=== PATIENT | female | born 1970 | race Caucasian/White ===

== ENCOUNTER → 2016-11-27 | Outpatient (CLI) | payer MEDICARE, OTHER ==
--- NOTE | 2016-11-27 16:31 | US ---
EXAMINATION TYPE: US thyroid st tissue head/neck DATE OF EXAM: 11/27/2016 3:56 PM COMPARISON: NONE CLINICAL HISTORY: 46-year-old female enlarged thyroid E01.1. Thyroidomegaly . TECHNIQUE: Multiple sonographic images of the thyroid gland were obtained. FINDINGS: Right Lobe: 4.0 x 1.4 x 1.8 cm Overall Parenchyma: homogenous Left Lobe: 3.9 x 1.0 x 1.2 cm Overall Parenchyma: homogeneous Isthmus Thickness: 0.4 cm No discrete nodule is seen. IMPRESSION: Gland measurements as above. No discrete nodule.
== END | disposition home or self-care (01) ==
LOC: RADUSWWP 15:43
PROVIDERS: ATTEND Family Medicine
DX: E01.0 Iodine-deficiency related diffuse (endemic) goiter (principal)
CPT/HCPCS: 76536

== ENCOUNTER → 2017-07-14 | Outpatient (CLI) | payer MEDICARE, OTHER ==
[2017-07-14 20:43] LABS: Basophils % (A) 1 %; CH 28.1; CHCM 31.3; Eosinophils # (A) 0.1 k/uL (0-0.7); Eosinophils % (A) 2 %; HCT 40.6 % (34.0-46.0); HDW 2.25; HGB 12.8 gm/dL (11.4-16.0); Luc # (Auto) 0.11; Luc % (Auto) 2; Lymphocytes # (A) 1.7 k/uL (1.0-4.8); Lymphocytes % (A) 29 %; MCH 28.6 pg (25.0-35.0); MCHC 31.6 g/dL (31.0-37.0); MCV 90.4 fL (80.0-100.0); Mean Platelet Volume 7.9; Monocytes # (A) 0.4 k/uL (0-1.0); Monocytes % (A) 7 %; Neutrophils # (A) 3.5 k/uL (1.3-7.7); Neutrophils % (A) 60 %; RBC 4.49 m/uL (3.80-5.40); RDW 14.6 % (11.5-15.5); WBC 5.8 k/uL (3.8-10.6); WBC (Perox) 6.09
[2017-07-14 20:58] LABS: ALT 21 U/L (9-52); AST 20 U/L (14-36); Alkaline Phosphatase 71 U/L (38-126); Anion Gap 10 mmol/L; Blood Urea Nitrogen 15 mg/dL (7-17); Calcium 9.7 mg/dL (8.4-10.2); Carbon Dioxide 24 mmol/L (22-30); Chloride 106 mmol/L (98-107); Cholesterol 172 mg/dL (<200); Glucose 85 mg/dL (74-99); HDL Cholesterol 70 mg/dL (40-60); Non-African American GFR(MDRD) >60 (>60 ml/min/1.73 sqM); Potassium 4.5 mmol/L (3.5-5.1); Sodium 140 mmol/L (137-145); Total Bilirubin 0.4 mg/dL (0.2-1.3); Total Protein 7.1 g/dL (6.3-8.2)
== END ==
LOC: MMGSC 11:35
PROVIDERS: ATTEND Family Medicine
DX: Z00.00 Encounter for general adult medical examination without abnormal findings (principal); N93.8 Other specified abnormal uterine and vaginal bleeding
CPT/HCPCS: 36415; 80053; 80061; 83001; 83002; 84439; 84443; 85025; 99203

== ENCOUNTER → 2018-12-14 | Outpatient (CLI) | payer MEDICARE, OTHER ==
--- NOTE | 2018-12-15 13:38 | MM ---
Reason for exam: screening (asymptomatic). Last mammogram was performed 3 years and 4 months ago. History: Patient is nulliparous. Family history of breast cancer in maternal grandmother at age 60, breast cancer in paternal grandmother at age 60, breast cancer in paternal aunt at age 30, breast cancer in paternal aunt at age 60, and breast cancer in 2 other paternal aunts. Took hormonal contraceptives for 6 years. Physical Findings: A clinical breast exam by your physician is recommended on an annual basis and results should be correlated with mammographic findings. MG 3D Screening Mammo W/Cad Bilateral CC and MLO view(s) were taken. Prior study comparison: August 15, 2015, bilateral MG 3d screening mammo w/cad. The breast tissue is heterogeneously dense. This may lower the sensitivity of mammography. No suspicious abnormality on the left breast. Right lateral asymmetry on CC 3D image 34/68 approximately 8cm from nipple. ASSESSMENT: Incomplete: need additional imaging evaluation, BI-RAD 0 RECOMMENDATION: Special view mammogram of the right breast. If lesion persists on supplemental views, image directed ultrasound is recommended. [facility] will attempt to contact patient to return for supplemental views and ultrasound if indicated.
== END ==
LOC: RADMAMWWP 12:51
PROVIDERS: ATTEND Family Medicine
DX: Z12.31 Encounter for screening mammogram for malignant neoplasm of breast (principal)
CPT/HCPCS: 77063; 77067

== ENCOUNTER → 2018-12-21 | Outpatient (CLI) | payer MEDICARE, OTHER ==
--- NOTE | 2018-12-21 14:29 | MM ---
Reason for exam: additional evaluation requested from abnormal screening. Last mammogram was performed less than 1 month ago. History: Patient is nulliparous. Family history of breast cancer in maternal grandmother at age 60, breast cancer in paternal grandmother at age 60, breast cancer in paternal aunt at age 30, breast cancer in paternal aunt at age 60, and breast cancer in 2 other paternal aunts. Took hormonal contraceptives for 6 years. Physical Findings: Nurse did not find any significant physical abnormalities on exam. MG 3D Work Up W/Cad RT Spot compression CC, spot compression MLO, and ML view(s) were taken of the right breast. Prior study comparison: December 14, 2018, bilateral MG 3d screening mammo w/cad. August 15, 2015, bilateral MG 3d screening mammo w/cad. The breast tissue is heterogeneously dense. This may lower the sensitivity of mammography. Focal asymmetry right upper outer quadrant, stable. No significant new findings when compared with previous films. These results were verbally communicated with the patient and result sheet given to the patient on 12/21/18. ASSESSMENT: Benign, BI-RAD 2 RECOMMENDATION: Follow-up diagnostic mammogram of the right breast in 6 months.
== END ==
LOC: RADMAMWWP 13:35
PROVIDERS: ATTEND Family Medicine
DX: R92.8 Other abnormal and inconclusive findings on diagnostic imaging of breast (principal)
CPT/HCPCS: 77065; G0279; 77061

== ENCOUNTER → 2019-09-01 | Outpatient (CLI) | payer MEDICARE, OTHER ==
--- NOTE | 2019-09-02 08:00 | MM ---
Reason for exam: follow-up at short interval from prior study. Last mammogram was performed 8 months ago. History: Patient is nulliparous. Family history of breast cancer in maternal grandmother at age 60, breast cancer in paternal grandmother at age 60, breast cancer in paternal aunt at age 30, breast cancer in paternal aunt at age 60, and breast cancer in 2 other paternal aunts. Took hormonal contraceptives for 6 years. Physical Findings: Nurse did not find any significant physical abnormalities on exam. MG 3D Diag Mammo W/Cad RT CC and MLO view(s) were taken of the right breast. Prior study comparison: December 21, 2018, right breast MG 3d work up w/cad RT. December 14, 2018, bilateral MG 3d screening mammo w/cad. The breast tissue is heterogeneously dense. This may lower the sensitivity of mammography. No significant new findings when compared with previous films. These results were verbally communicated with the patient and result sheet given to the patient on 09/01/19. ASSESSMENT: Benign, BI-RAD 2 RECOMMENDATION: Return to routine screening mammogram schedule for both breasts. Back on schedule.
== END | disposition home or self-care (01) ==
LOC: RADMAMWWP 13:33
PROVIDERS: ATTEND Family Medicine
DX: R92.8 Other abnormal and inconclusive findings on diagnostic imaging of breast (principal)
CPT/HCPCS: 77065; G0279; 77061

== ENCOUNTER → 2020-06-20 | Outpatient (CLI) | payer MEDICARE ==
[2020-06-20 10:24] VITALS: BP 132/83; PULSE 74; RESP 18; TEMP 98.3
--- NOTE | 2020-06-20 13:45 | P.HPOB ---
History of Present Illness H&P Date: 06/20/20 Chief Complaint: The patient is here for her routine gynecologic exam and ma mmogram. This is a 50-year-old with an LMP of 05/31/2020. The patient is here to establish with this office. It has been about 2 years since her last pelvic exam. Menses are regular every month and she denies any intermenstrual bleeding. She is not sexually active. She is without gynecologic complaints. Review of Systems She states her weight can fluctuate by about 10 pounds. She denies respiratory, cardiac, or GI problems. Past Medical History Past Medical History: Asthma, Hypertension Additional Past Medical History / Comment(s): Cerebral palsy and seasonal ALLERGIES. She uses a diuretic for water retention. PAST SOFTWARE QA MANAGER HISTORY: She has no history of STDs. History of Any Multi-Drug Resistant Organisms: None Reported Past Surgical History: Adenoidectomy, Joint Replacement, Orthopedic Surgery Additional Past Surgical History / Comment(s): Right hip replacement. Right wrist surgery. Surgery on hamstring, heel and bunionectomy. Colonoscopy 2014. Past Psychological History: No Psychological Hx Reported Smoking Status: Never smoker Past Alcohol Use History: Occasional (3 per month) Past Drug Use History: None Reported Additional History: The patient is single and is not seeing anybody at this time. 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 - Past Family History Father Family Medical History: Asthma Additional Family Medical History / Comment(s): History of alcohol and drug abuse. Paternal grandmother had breast cancer. Paternal grandfather had renal cancer. Mother Family Medical History: Asthma, Cancer Additional Family Medical History / Comment(s): Migraine. Very early breast cancer. Medications and Allergies Home Medications Medication Instructions Recorded Confirmed Type Ascorbic Acid [Vitamin C] 500 mg PO DAILY 06/20/20 06/20/20 History Budesonide-Formot 160-4.5 Mcg 2 puff INHALATION BID 06/20/20 06/20/20 History [Symbicort 160-4.5 Mcg Inhaler] Cholecalciferol [Vitamin D3 (25 1,000 unit PO DAILY 06/20/20 06/20/20 History Mcg = 1000 Iu)] Furosemide [Lasix] 20 mg PO DAILY 06/20/20 06/20/20 History Ibuprofen 200 mg PO Q8H 06/20/20 06/20/20 History Ipratropium [place] 0.06%Nasal 1 spray EA NOSTRIL DAILY PRN 06/20/20 06/20/20 History [Atrovent Nasal 0.06%] Ipratropium/Albuter 20-100Mcg 1 puff INHALATION DAILY PRN 06/20/20 06/20/20 History [Combivent Respimat 20-100Mcg Inhaler] Loratadine 10 mg PO DAILY PRN 06/20/20 06/20/20 History Magnesium 250 mg PO DAILY 06/20/20 06/20/20 History Metoprolol Tartrate [Lopressor] 50 mg PO BID 06/20/20 06/20/20 History Montelukast Sodium [Singulair] 10 mg PO HS 06/20/20 06/20/20 History Multivit with Calcium,Iron,Min 1 each PO DAILY 06/20/20 06/20/20 History [Women's Multivitamin] Turmeric Root Extract [Turmeric] 500 mg PO DAILY 06/20/20 06/20/20 History diphenhydrAMINE [Benadryl] 25 mg PO HS PRN 06/20/20 06/20/20 History Allergies Allergy/AdvReac Type Severity Reaction Status Date / Time fentanyl Allergy Swelling Unverified 06/20/20 10:19 Exam Vital Signs Temp Pulse Resp BP Pulse Ox 06/20/20 10:21 98.3 F 74 18 132/83 99 Intake and Output 06/19/20 06/20/20 06/20/20 22:59 06:59 14:59 Other: Weight 87.09 kg Height 5 feet 1/2 inch, weight 192 pounds, BMI 36.9. This is a well-developed well-nourished white female who is alert and oriented times 3 in no acute distress. The patient ambulates with a walker. HEENT: Within normal limits. NECK: Supple without mass or thyromegaly. CHEST AND LUNGS: Clear to auscultation. HEART: Regular rate and rhythm. BREASTS: Are without mass or discharge. AXILLARY EXAM: Negative for adenopathy. BACK: Negative for CVA tenderness. ABDOMEN: Soft, nontender, without palpable masses. PELVIC EXAM: Normal external genitalia. Cervix reveals 2 endocervical polyps. One is a longer tongue-like probe injection measuring approximately 10 x 5 mm. There is a second one that is round measuring impression a 6 x 6 mm. Both have a pink mucosal color and are benign-appearing. The vagina appears normal. There is no unusual discharge. There is no evidence of prolapse. The uterus is midposition, nongravid size and nontender. There are no palpable adnexal masses or tenderness. RECTAL EXAM: negative for mass or tenderness and is negative for occult blood. EXTREMITIES: Nontender. IMPRESSION: 1. 50-year-old premenopausal female with 2 endocervical polyps that appear benign and measured 10x5 mm and 6 x 6 mm. The patient states she has had polyps from the cervix removed and have been benign in the past. The polyps seen today probably represent benign recurrent cervical polyps. PLAN: 1. Pap smear was performed. 2. Self breast awareness was discussed with the patient. 3. Screening mammogram will be done today. 4. Osteoporosis prevention was discussed. I have stressed the importance of adequate calcium, vitamin D and regular exercise. Recommended amounts of calcium and vitamin D were also discussed. 5. We have discussed her cervical polyps. Since she has had benign polyps removed from the cervix in the past, we have discussed the option of conservative management. She states that they do not cause her any problems and she would like to proceed without removal at this time. If they seem to be growing significantly in size or causing problems or if they take a more suspicious appearance, we will consider removal of the polyps. 6. She was advised to return in one year for her annual well woman exam and as needed.
--- NOTE | 2020-06-22 13:32 | MM ---
Reason for exam: screening (asymptomatic). Last mammogram was performed 10 months ago. History: Patient is nulliparous. Family history of breast cancer in maternal grandmother at age 60, breast cancer in paternal grandmother at age 60, breast cancer in paternal aunt at age 30, breast cancer in paternal aunt at age 60, and breast cancer in 2 other paternal aunts. Took hormonal contraceptives for 6 years. Physical Findings: A clinical breast exam by your physician is recommended on an annual basis and results should be correlated with mammographic findings. MG 3D Screening Mammo W/Cad Bilateral CC and MLO view(s) were taken. Prior study comparison: September 01, 2019, right breast MG 3d diag mammo w/cad RT. December 21, 2018, right breast MG 3d work up w/cad RT. The breast tissue is heterogeneously dense. This may lower the sensitivity of mammography. Focal asymmetry right upper outer quadrant. No significant changes when compared with prior studies. ASSESSMENT: Benign, BI-RAD 2 RECOMMENDATION: Routine screening mammogram of both breasts in 1 year.
--- NOTE | 2020-07-03 18:13 | P.PN ---
Progress Note - Text Progress Note Date: 07/03/20 OUTPATIENT FOLLOW-UP NOTE TEST(S)/RESULTS: test results from 06/20/2020 include negative Pap smear and benign mammogram. METHOD OF NOTIFICATION: a message with these results was left on the patient's voice mail. PATIENT COMMENTS: DIAGNOSIS: negative Pap smear and benign mammogram. DISCUSSION: PLAN: the patient is to return in one year for her annual well woman exam.
== END | disposition home or self-care (01) ==
LOC: WWCWWP 09:59
PROVIDERS: ATTEND Obstetrics & Gynecology
DX: Z12.31 Encounter for screening mammogram for malignant neoplasm of breast (principal)
CPT/HCPCS: 77063; 77067